=== PATIENT | female | born 1985 | race Caucasian/White ===

== ENCOUNTER 2019-03-14 02:42 | Emergency (ER) | payer OTHER ==
[~2019-03-14] VITALS: Ht 172.7 cm; Wt 85.5 kg
[~2019-03-14 02:42] MED LIST: LEVOXYL0.1 MG PO; MACROBID 1100 MG/CAP PO; PHENERGAN 25 TA25 MG PO; PRENATAL MVI; STOOL STUDIES
[2019-03-14 02:46] VITALS: TEMP 98.3
[2019-03-14 03:29] LABS: BASO % 0.2 % (0.0-2.0); EOS % 0.1 % (0-4.0); GRAN # 14.7 (1.4-6.5); GRAN % 88.9 % (42.2-75.2); HEMATOCRIT 42.2 % (37.0-47.0); HEMOGLOBIN 13.8 g/dl (12.5-16.0); LYMPH # 0.9 (1.2-3.4); LYMPH % 5.5 % (20.0-51.0); MEAN CELL VOLUME 84 fl (80.0-100.0); MEAN CORPUSCULAR HEMOGLOBIN 28 pg (27.0-31.0); MEAN CORPUSCULAR HGB CONC 33 g/dl (33.0-37.0); MEAN PLATELET VOLUME 10.2 fl (7.4-10.4); MONO # 0.8 (0.1-0.6); MONO % 4.8 % (1.7-9.3); PLATELET COUNT 351 K/mm3 (130-400); REDCELL DISTRIBUTION WIDTH-CV 12.2 % (11.5-14.5)
[2019-03-14 03:35] LABS: COLLECTION METHOD CLEAN CATCH
[2019-03-14 03:40] LABS: ALANINE AMINOTRANSFERASE 18 U/L (9-52); ALKALINE PHOSPHATASE 84 U/L (50-136); ANION GAP 14 mmol/L (7-16); AST,SGOT 22 U/L (15-37); BILIRUBIN,TOTAL 0.6 mg/dL (0.0-1.0); BLOOD UREA NITROGEN 15 mg/dL (7-17); CALCIUM 9.4 mg/dL (8.4-10.2); CARBON DIOXIDE 22 mmol/L (22-30); CHLORIDE 103 mmol/L (98-107); CREATININE, serum 0.65 (0.52-1.25); GLUCOSE 147 mg/dL (74-106); POTASSIUM 4.1 mmol/L (3.4-5.0); SODIUM 138 mmol/L (137-145); TOTAL PROTEIN 8.6 gm/dL (6.4-8.2)
[2019-03-14 03:43] LABS: PH 5 (5-8); URINE APPEARANCE Hazy; URINE BACTERIA Moderate /hpf; URINE BILIRUBIN Negative (NEGATIVE); URINE BLOOD 1+ (NEGATIVE); URINE COLOR Straw; URINE GLUCOSE Negative (NEGATIVE); URINE KETONE Negative (NEGATIVE); URINE LEUKOCYTE ESTERASE Negative (NEGATIVE); URINE NITRATE Negative (NEGATIVE); URINE PROTEIN(semi-quant) Negative (NEGATIVE); URINE RBC 0-2 /hpf; URINE UROBILINOGEN Negative (NEGATIVE)
[2019-03-14 03:49] LABS: INR 1.1 (0.8-3.0); PROTHROMBIN TIME 12.4 SECONDS (9.7-12.8)
[2019-03-14 03:56] LABS: TROPONIN-I < 0.012 ng/mL (0.000-0.035)
[2019-03-14 04:09] LABS: TSH w REFLEX 0.015 uIU/mL (0.465-4.680)
[2019-03-14 04:41] LABS: D-DIMER < 200.00 ng/mLDDu (200-230)
[2019-03-14] MEDS ORDERED: ZITHROMAX Z PA250 MG PO (05:19)
[2019-03-14] MEDS ORDERED: OMNICEF 300MG300 MG PO (05:23)
[2019-03-14 05:45] VITALS: BP 104/64; PULSE 110
== END 2019-03-14 05:45 | disposition home or self-care (01) ==
LOC: COL.ER 02:42
PROVIDERS: Emergency Medicine
DX: R00.0 Tachycardia, unspecified (principal); Z98.890 Other specified postprocedural states
CPT/HCPCS: A4216; J0696; J1885; J2405; J7030

== ENCOUNTER 2020-02-10 14:18 | Emergency (ER) | payer OTHER ==
[~2020-02-10] VITALS: Ht 172.7 cm; Wt 84.1 kg
[~2020-02-10 14:18] MED LIST changes: +OMNICEF 300MG300 MG PO; +ZITHROMAX Z PA250 MG PO
[2020-02-10 14:45] LABS: BASO % 0.3 % (0.0-2.0); EOS # 0.1 (0.0-0.7); EOS % 1.7 % (0-4.0); GRAN # 4.8 (1.4-6.5); HEMATOCRIT 39.3 % (37.0-47.0); HEMOGLOBIN 12.9 g/dl (12.5-16.0); LYMPH # 2.2 (1.2-3.4); LYMPH % 29.6 % (20.0-51.0); MEAN CELL VOLUME 86 fl (80.0-100.0); MEAN CORPUSCULAR HEMOGLOBIN 28 pg (27.0-31.0); MEAN CORPUSCULAR HGB CONC 33 g/dl (33.0-37.0); MONO # 0.3 (0.1-0.6); MONO % 4.3 % (1.7-9.3); PLATELET COUNT 288 K/mm3 (130-400); RED BLOOD COUNT 4.55 M/mm3 (4.10-5.30)
[2020-02-10 15:00] LABS: ALANINE AMINOTRANSFERASE 13 U/L (4-34); ALBUMIN 4.3 gm/dL (3.5-5.0); ALKALINE PHOSPHATASE 53 U/L (50-136); ANION GAP 10 mmol/L (7-16); AST,SGOT 20 U/L (15-37); BILIRUBIN,TOTAL 0.5 mg/dL (0.0-1.0); BLOOD UREA NITROGEN 16 mg/dL (7-17); CALCIUM 8.5 mg/dL (8.4-10.2); CARBON DIOXIDE 23 mmol/L (22-30); CHLORIDE 103 mmol/L (98-107); CREATININE, serum 0.71 (0.52-1.25); GLUCOSE 176 mg/dL (74-106); POTASSIUM 3.6 mmol/L (3.4-5.0); SODIUM 136 mmol/L (137-145); TOTAL PROTEIN 7.4 gm/dL (6.4-8.2)
[2020-02-10 15:13] LABS: TROPONIN-I < 0.012 ng/mL (0.000-0.035)
[2020-02-10 16:27] VITALS: BP 107/79; PULSE 76
== END 2020-02-10 16:35 | disposition home or self-care (01) ==
LOC: COL.ER 14:18
PROVIDERS: Physician Assistant
DX: R07.89 Other chest pain (principal); E03.9 Hypothyroidism, unspecified; Z32.02 Encounter for pregnancy test, result negative; Z88.2 Allergy status to sulfonamides; Z79.890 Hormone replacement therapy
CPT/HCPCS: J7030

== ENCOUNTER 2021-07-19 13:25 | Emergency (ER) | payer OTHER ==
[2021-07-19 13:34] VITALS: TEMP 98.2
[2021-07-19 15:59] VITALS: BP 127/77; PULSE 92
== END 2021-07-19 15:59 | disposition home or self-care (01) ==
LOC: COL.ER 13:25
DX: M79.89 Other specified soft tissue disorders (principal); R79.1 Abnormal coagulation profile; Z28.310 Unvaccinated for COVID-19

== ENCOUNTER → 2021-07-20 | Outpatient (CLI) | payer OTHER | LOC: COL.VAS 08:00 | DX: M79.604 Pain in right leg (principal); M79.89 Other specified soft tissue disorders ==

== ENCOUNTER 2021-07-31 13:15 | Emergency (ER) | payer OTHER ==
[~2021-07-31] VITALS: Ht 170.2 cm; Wt 79.5 kg
[2021-07-31 13:36] VITALS: BP 148/98; TEMP 98
[2021-07-31 14:15] LABS: BASO # 0.1 K/mm3 (0.0-0.2); BASO % 0.6 % (0.0-2.0); EOS # 0.2 K/mm3 (0.0-0.7); EOS % 1.7 % (0.0-4.0); GRAN # 6.3 K/mm3 (1.4-6.5); GRAN % 69.2 % (42.2-75.2); HEMOGLOBIN 11.7 g/dl (12.5-16.0); LYMPH # 2.1 K/mm3 (1.2-3.4); LYMPH % 23.1 % (20.0-51.0); MEAN CELL VOLUME 84 fl (80.0-100.0); MEAN CORPUSCULAR HEMOGLOBIN 27 pg (27-31); MEAN CORPUSCULAR HGB CONC 33 g/dl (33.0-37.0); MEAN PLATELET VOLUME 9.6 fl (7.4-10.4); MONO # 0.5 K/mm3 (0.1-0.6); MONO % 5.1 % (1.7-9.3); PLATELET COUNT 376 K/mm3 (130-400); REDCELL DISTRIBUTION WIDTH-CV 13.4 % (11.5-14.5)
[2021-07-31 14:34] LABS: BILIRUBIN,TOTAL 0.3 mg/dL (0.2-1.2); CALCIUM 8.6 mg/dL (8.4-10.2); CREATININE, serum 0.74 mg/dL (0.57-1.11); POTASSIUM 3.8 mmol/L (3.5-4.5); TOTAL PROTEIN 7.8 gm/dL (6.2-8.1)
[2021-07-31] MEDS ORDERED: PERCOCET 325 MG1 TA2 PO (15:45)
[2021-07-31 15:58] VITALS: PULSE 88
== END 2021-07-31 15:58 | disposition home or self-care (01) ==
LOC: COL.ER 13:15
PROVIDERS: Personal Emergency Response Attendant
DX: T85.838A Hemorrhage due to other internal prosthetic devices, implants and grafts, initial encounter (principal); Y83.1 Surgical operation with implant of artificial internal device as the cause of abnormal reaction of the patient, or of later complication, without mention of misadventure at the time of the procedure; Z28.310 Unvaccinated for COVID-19
CPT/HCPCS: J2270; J2405

== ENCOUNTER 2023-05-07 08:50 | Inpatient (IN) | payer OTHER ==
[~2023-05-07] VITALS: Ht 170.2 cm; Wt 106.4 kg
[2023-05-07] VITALS (17 sets, daily range): BP systolic 87–152; BP diastolic 55–85; PULSE 86–116; TEMP 97.8–98
[~2023-05-07 08:50] MED LIST changes: +PERCOCET 325 MG1 TA2 PO
--- NOTE | 2023-05-07 10:10 | NUR ---
PT AMBULATORY TO 220 WITH SPOUSE. PT HERE FOR REPEAT SECTION. PT CHANGED INTO CLEAN GOWN. FHR MONITOR/TOCO APPLIED. PT ORIENTED TO ROOM. POC DISCUSSED. PT VERBALIZES UNDERSTANDING. PT DENIES ANY VAGINAL BLEEDING, CONTRACTIONS, OR LEAKING OF FLUID. PT REPORTS GOOD MOVEMENT.
[2023-05-07] MEDS ORDERED: GLUCOPHAGE500 MG/TAB PO (10:24)
[2023-05-07] MEDS ORDERED: LR 1,000 ML IV SCH (11:00)
[2023-05-07] MEDS ORDERED: Ondansetron 4 MG/2 ML VIAL IV ONE (11:15)
[2023-05-07 11:44] LABS: HEMOGLOBIN 10.5 g/dl (12.5-16.0); MEAN CELL VOLUME 81 fl (80.0-100.0); MEAN CORPUSCULAR HEMOGLOBIN 25 pg (27-31); MEAN CORPUSCULAR HGB CONC 31 g/dl (33.0-37.0); MEAN PLATELET VOLUME 9.9 fl (7.4-10.4); PLATELET COUNT 250 K/mm3 (130-400); RED BLOOD COUNT 4.17 M/mm3 (4.10-5.30); REDCELL DISTRIBUTION WIDTH-CV 14.6 % (11.5-14.5)
[2023-05-07 11:46] LABS: HEMATOCRIT 33.6 % (37.0-47.0)
[2023-05-07] MEDS ORDERED: Oxytocin 10 UNITS/ML VIAL ONE (11:49)
[2023-05-07] MEDS ORDERED: ePHEDrine 50 MG/ML VIAL ONE (11:49)
[2023-05-07] MEDS ORDERED: NS 10 ML IV ONE ×2 (11:49→12:56)
[2023-05-07 12:10] LABS: ALBUMIN 2.6 gm/dL (3.5-5.0); BILIRUBIN,TOTAL 0.3 mg/dL (0.2-1.2); CALCIUM 8.3 mg/dL (8.4-10.2); CREATININE, serum 0.63 mg/dL (0.57-1.11); TOTAL PROTEIN 6.7 gm/dL (6.2-8.1)
[2023-05-07 12:45] LABS: EOSINOPHIL 5 % (0-4); LYMPHOCYTE 18 % (20.0-51.0); NEUTROPHILS 71 % (42.0-75.2)
[2023-05-07 12:46] LABS: HYPOCHROMIA 2+; PLATELET ESTIMATE NORMAL (NORMAL)
[2023-05-07] MEDS ORDERED: dexAMETHasone 10 MG/ML VIAL ONE (12:56)
[2023-05-07] MEDS ORDERED: oxyCODONE 5 MG TAB PO PRN (13:30)
[2023-05-07] MEDS ORDERED: Loratadine 10 MG TAB PO PRN (13:30)
[2023-05-07] MEDS ORDERED: Magnes Hydrox (MOM) 80 MG/ML 30 ML CUP PO PRN (13:30)
[2023-05-07] MEDS ORDERED: Measles/Mumps/Rubella Virus Vaccine Live w Diluent 0.5 ML VIAL SQ SCH (13:30)
[2023-05-07] MEDS ORDERED: Naloxone 0.4 MG/ML VIAL IV PRN (13:30)
[2023-05-07] MEDS ORDERED: Morphine 4 MG/ML VIAL IV PRN (13:30)
[2023-05-07] MEDS ORDERED: Ondansetron 4 MG/2 ML VIAL IV PRN (13:30)
[2023-05-07] MEDS ORDERED: Acetaminophen 500 MG TAB PO SCH (13:30)
[2023-05-07] MEDS ORDERED: LR 1,000 ML IV PRN (13:30)
[2023-05-07] MEDS ORDERED: Sennosides/Docusate 8.6-50 MG TAB PO SCH (17:00)
[2023-05-07] MEDS ORDERED: Ibuprofen 600 MG TAB PO SCH (19:29)
[2023-05-07] MEDS ORDERED: traZODone 50 MG TAB PO PRN (21:00)
[2023-05-08 01:15] VITALS: BP 134/79; PULSE 86; TEMP 97.8
[2023-05-08] MEDS ORDERED: oxyCODONE 5 MG TAB PO PRN (02:45)
[2023-05-08 07:25] VITALS: BP 129/80; PULSE 98; TEMP 97.6
[2023-05-08] MEDS ORDERED: ROXICODONE 55 MG/TAB PO (08:02)
[2023-05-08] MEDS ORDERED: IBU600 MG PO (08:02)
--- NOTE | 2023-05-08 09:50 | NUR ---
Initial visit; Patient thanked Cell Operator for looking in on her and offering Congratulations and God's blessings for the of her son. Cell Operator thanked patient for choosing [facility].
[2023-05-08 12:00] VITALS: BP 140/92; PULSE 94; TEMP 97.8
[2023-05-08 16:47] VITALS: BP 143/86; PULSE 94; TEMP 97.7
[2023-05-08 20:00] VITALS: BP 132/74; PULSE 87; TEMP 97.7
[2023-05-09 07:43] VITALS: BP 134/81; PULSE 84; TEMP 97.2
== END 2023-05-09 10:40 | disposition home or self-care (01) | DRG 788 ==
LOC: OB 08:50
PROVIDERS: ADMIT Obstetrics & Gynecology
PROC: 10D00Z1 Extraction of Products of Conception, Low, Open Approach (ICD-10-PCS; principal; 2023-05-07)
DX: O34.219 Maternal care for unspecified type scar from previous cesarean delivery (principal); O24.425 Gestational diabetes mellitus in childbirth, controlled by oral hypoglycemic drugs; Z3A.39 39 weeks gestation of pregnancy; Z37.0 Single live birth; O99.214 Obesity complicating childbirth; O99.284 Endocrine, nutritional and metabolic diseases complicating childbirth; E06.3 Autoimmune thyroiditis
CPT/HCPCS: J0665; J0690; J1100; J2405; J2590; J2765; J7120